=== PATIENT | female | born 1995 | race Caucasian/White ===

== ENCOUNTER 2022-07-02 06:40 | Emergency (ER) | payer OTHER ==
[~2022-07-02] VITALS: Ht 165.1 cm; Wt 93.0 kg
[2022-07-02] MEDS ORDERED: IBUP-2029 MT (12:10)
[2022-07-02 12:31] VITALS: BP 125/56
== END 2022-07-02 12:54 | disposition home or self-care (01) ==
LOC: ER 06:40
DX: R07.89 Other chest pain (principal); Z20.822 Contact with and (suspected) exposure to COVID-19
CPT/HCPCS: 71045; 81025; 87426; 93005; 99285; C9803